=== PATIENT | male | born 1975 | race Caucasian/White ===

== ENCOUNTER 2016-12-21 05:25 | Emergency (ER) | payer OTHER ==
[~2016-12-21] VITALS: Ht 165.1 cm; Wt 94.8 kg
[~2016-12-21 05:25] MED LIST: ATORVASTATIN CA20 MG PO; CITALOPRAM HBR20 MG PO; DICLOFENAC SOD100 MG PO; NORCO 7.5-3251 EACH PO; PERCOCET 7.5-31 EACH PO; PRILOSEC20 MG PO; PROVENTIL HFA6.7 GM INH; PROZAC20 MG PO; TESSALON PERLE100 MG PO; ZOLOFT50 MG PO
[2016-12-21] MEDS ORDERED: OXYCODONE HCL5 MG PO (05:52)
[2016-12-21] MEDS ORDERED: OMEPRAZOLE20 MG PO (05:52)
[2016-12-21] MEDS ORDERED: ATORVASTATIN CA20 MG PO (05:53)
[2016-12-21] MEDS ORDERED: TRAZODONE HCL50 MG PO (05:53)
[2016-12-21] MEDS ORDERED: CYCLOBENZAPRINE10 MG PO (05:53)
[2016-12-21] MEDS ORDERED: CELEXA20 MG PO (05:54)
[2016-12-21] MEDS ORDERED: CELEXA40 MG PO (05:54)
[2016-12-21] MEDS ORDERED: ONDANSETRON ODT8 MG PO (08:06)
== END 2016-12-21 08:15 | disposition home or self-care (01) ==
LOC: ED 05:25
DX: R55 Syncope and collapse (principal); F32.9 Major depressive disorder, single episode, unspecified; K21.9 Gastro-esophageal reflux disease without esophagitis; F17.200 Nicotine dependence, unspecified, uncomplicated; Z90.49 Acquired absence of other specified parts of digestive tract; Z79.899 Other long term (current) drug therapy
CPT/HCPCS: 36415; 71020; 74177; 80053; 81001; 83690; 85025; 87088; 96360; 99284; J7030; Q9967

== ENCOUNTER 2018-06-10 23:42 | Emergency (ER) | payer OTHER ==
[~2018-06-10] VITALS: Ht 165.1 cm; Wt 94.8 kg
[~2018-06-10 23:42] MED LIST changes: +CELEXA20 MG PO; +CELEXA40 MG PO; +CYCLOBENZAPRINE10 MG PO; +OMEPRAZOLE20 MG PO; +ONDANSETRON ODT8 MG PO; +OXYCODONE HCL5 MG PO; +TRAZODONE HCL50 MG PO
== END 2018-06-11 00:34 | disposition home or self-care (01) ==
LOC: ED 23:42
DX: G89.18 Other acute postprocedural pain (principal); M25.521 Pain in right elbow; F32.9 Major depressive disorder, single episode, unspecified; F17.200 Nicotine dependence, unspecified, uncomplicated
CPT/HCPCS: 71046; 73060; 99283-25

== ENCOUNTER 2020-02-27 16:12 | Emergency (ER) | payer SELFPAY ==
[~2020-02-27] VITALS: Ht 165.1 cm; Wt 70.3 kg
[~2020-02-27 16:12] MED LIST changes: +NORCO 5-325 TA1 EACH PO
[2020-02-27] MEDS ORDERED: NORCO 5-325 TA1 EACH PO (18:36)
== END 2020-02-27 18:57 | disposition home or self-care (01) ==
LOC: ED 16:12
DX: N13.2 Hydronephrosis with renal and ureteral calculous obstruction (principal); F17.200 Nicotine dependence, unspecified, uncomplicated
CPT/HCPCS: 74176; 80053; 85025; 96374; 96375; 99284-25; J1885; J2405

== ENCOUNTER 2020-05-30 20:31 | Emergency (ER) | payer OTHER ==
[~2020-05-30] VITALS: Ht 165.1 cm; Wt 86.2 kg
[2020-05-30] MEDS ORDERED: CEPHALEXIN500 M1 PO (21:51)
[2020-05-30] MEDS ORDERED: BACTRIM DS TAB1 EACH PO (21:51)
== END 2020-05-30 22:08 | disposition home or self-care (01) ==
LOC: ED 20:31
DX: L03.113 Cellulitis of right upper limb (principal); K21.9 Gastro-esophageal reflux disease without esophagitis; F17.200 Nicotine dependence, unspecified, uncomplicated
CPT/HCPCS: 99283; A9270

== ENCOUNTER 2020-07-18 11:23 | Emergency (ER) | payer OTHER ==
[~2020-07-18] VITALS: Ht 165.1 cm; Wt 90.7 kg
[~2020-07-18 11:23] MED LIST changes: +BACTRIM DS TAB1 EACH PO; +CEPHALEXIN500 M1 PO
[2020-07-18] MEDS ORDERED: PREDNISONE20 MG PO ×2 (13:25→13:31)
== END 2020-07-18 13:52 | disposition home or self-care (01) ==
LOC: ED 11:23
DX: M54.12 Radiculopathy, cervical region (principal); K21.9 Gastro-esophageal reflux disease without esophagitis; F17.200 Nicotine dependence, unspecified, uncomplicated
CPT/HCPCS: 96372; 99283; J1885; J7512

== ENCOUNTER 2022-04-21 20:42 | Emergency (ER) | payer OTHER ==
[~2022-04-21] VITALS: Ht 165.1 cm; Wt 117.9 kg
[~2022-04-21 20:42] MED LIST changes: +ARIPIPRAZOLE15 MG; +MIRTAZAPINE30 MG; +PREDNISONE20 MG PO; +PRILOSEC OTC20 MG
--- OUTSIDE RECORDS SUMMARY | 2022-04-21 20:46 | XMS ---
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 [place] VISIT COUNT (12 MO.) 2 [facility]. TOTAL 2 NOTE: Visits indicate total known visits. ED/UCC VISIT TRACKING (12 MO.) 04/21/2022 20:42 [facility] TYPE: Emergency COMPLAINT: - SEIZURE 03/29/2022 19:58 [facility] TYPE: Emergency COMPLAINT: - SYNCOPE DIAGNOSES: - Other chcf (current) drug therapy - Syncope and collapse - Gastro-esophageal reflux disease without esophagitis - Nicotine dependence, unspecified, uncomplicated - Allergy status to other drugs, medicaments and biological substances INPATIENT VISIT TRACKING (12 MO.) No inpatient visits to display in this time frame [email or web address]
--- NOTE | 2022-04-22 07:22 | EKG ---
[facility] [address] [facility] [place], [place] [address] Signed Normal sinus rhythm Normal ECG No previous ECGs available Confirmed by ALDO BANEGAS MD ([id number]) on 04/22/2022 7:22:03 AM Electronically Signed By: ALDO BANEGAS MD 04/22/22721 PATIENT NAME: KIKI LOBO Electrocardiogram DATE OF : 79 PHYSICIAN: ALDO BANEGAS MD REPORT #: [id number] REPORT IS CONFIDENTIAL AND NOT TO BE RELEASED WITHOUT AUTHORIZATION
== END 2022-04-21 22:55 | disposition home or self-care (01) ==
LOC: ED 20:42
DX: I95.1 Orthostatic hypotension (principal); K21.9 Gastro-esophageal reflux disease without esophagitis; F17.200 Nicotine dependence, unspecified, uncomplicated; Z88.8 Allergy status to other drugs, medicaments and biological substances; Z79.899 Other long term (current) drug therapy
CPT/HCPCS: 36415; 70450; 80053; 81001; 85025; 93005; 93010; 99284-25

== ENCOUNTER 2023-01-23 13:33 | Emergency (ER) | payer OTHER ==
[~2023-01-23] VITALS: Ht 165.1 cm; Wt 99.6 kg
[2023-01-23] MEDS ORDERED: HYDROCHLOROTH12.5 MG PO (16:23)
[2023-01-23 16:24] VITALS: BP 122/90
[2023-01-23] MEDS ORDERED: LAMOTRIGINE100 MG PO (16:24)
[2023-01-23] MEDS ORDERED: TRAZODONE HCL150 MG PO (16:24)
[2023-01-23] MEDS ORDERED: CYCLOBENZAPRINE10 MG PO (17:05)
[2023-01-23] MEDS ORDERED: PREDNISONE20 MG PO (17:05)
--- NOTE | 2023-01-24 05:54 | EKG ---
[facility] [address] [facility] [place], [place] [address] Signed Normal sinus rhythm Normal ECG When compared with ECG of 21-APR-2022 20:57, No significant change was found Confirmed by JERI RENEE MD ([id number]) on 01/24/2023 5:54:20 AM Electronically Signed By: JERI RENEE 01/24/23 0554 PATIENT NAME: LOBOKIKIKATELYN JANE Electrocardiogram DATE OF : 79 PHYSICIAN: JERI RENEE REPORT #: [id number] REPORT IS CONFIDENTIAL AND NOT TO BE RELEASED WITHOUT AUTHORIZATION
== END 2023-01-23 17:14 | disposition home or self-care (01) ==
LOC: ED 13:33
DX: M54.6 Pain in thoracic spine (principal); M62.830 Muscle spasm of back; F17.200 Nicotine dependence, unspecified, uncomplicated; Z88.8 Allergy status to other drugs, medicaments and biological substances; Z79.899 Other long term (current) drug therapy
CPT/HCPCS: 93005; 93010; 99406

== ENCOUNTER 2023-04-11 19:10 | Emergency (ER) | payer OTHER ==
[~2023-04-11] VITALS: Ht 165.1 cm; Wt 98.3 kg
[~2023-04-11 19:10] MED LIST changes: +HYDROCHLOROTH12.5 MG PO; +LAMOTRIGINE100 MG PO; +TRAZODONE HCL150 MG PO
[2023-04-11 19:33] LABS: BASOPHILS 1.1 % (0-2); EOSINOPHILS 1.5 % (0-6); HEMATOCRIT 47.1 % (35.0-50.0); MCH 28.5 (27-36); MCV 83.9 fl (81-99); MONOCYTES 9.4 % (0-12); PLATELET COUNT 250 K/uL (140-440); RBC 5.62 M/ul (4.3-5.7); RDW 13.7 (10.5-15.0)
[2023-04-11 19:49] LABS: ALBUMIN 3.5 g/dL (3.4-5.0); ANION GAP 12.9 (7-21); BILIRUBIN, TOTAL 0.3 ng/dL (0.2-1.0); BUN/CREATININE RATIO 6.76 (6.0-28.6); CALCIUM 9.2 mg/dL (8.5-10.1); CREATININE, SERUM 1.33 mg/dL (0.70-1.30); POTASSIUM 3.9 mmol/L (3.5-5.1)
[2023-04-11] MEDS ORDERED: BUSPIRONE HCL5 MG PO (20:06)
[2023-04-11] MEDS ORDERED: ALBUTEROL/IPRATROPIUM 3 ML NEB INH ONE (21:00)
[2023-04-11 21:49] LABS: INFLUENZA B NAA NEGATIVE (NEGATIVE); RESPIRATORY SYNCYTIAL VIR NAA NEGATIVE (NEGATIVE)
[2023-04-11] MEDS ORDERED: VENTOLIN HFA18 GM INH (21:59)
--- NOTE | 2023-04-12 22:24 | EKG ---
[facility] [address] [place] [address] Signed Normal sinus rhythm Normal ECG When compared with ECG of 23-JAN-2023 16:33, No significant change was found Confirmed by Nate Mckinnon MD () on 04/12/2023 10:23:52 PM Electronically Signed By: NATE MCKINNON MD 04/12/232223 PATIENT NAME: LOBOKIKI Electrocardiogram DATE OF : 79 PHYSICIAN: NATE MCKINNON MD REPORT #: [id number] REPORT IS CONFIDENTIAL AND NOT TO BE RELEASED WITHOUT AUTHORIZATION
== END 2023-04-11 22:10 | disposition home or self-care (01) ==
LOC: ED 19:10
PROVIDERS: Internal Medicine
DX: J20.8 Acute bronchitis due to other specified organisms (principal); G56.02 Carpal tunnel syndrome, left upper limb; F17.200 Nicotine dependence, unspecified, uncomplicated; Z88.8 Allergy status to other drugs, medicaments and biological substances; Z79.899 Other long term (current) drug therapy
CPT/HCPCS: 36415; 71045; 80053; 83735; 84484; 85025; 87502; 93005; 93010; 94640; U0002

== ENCOUNTER 2023-10-11 15:39 | Emergency (ER) | payer OTHER ==
[~2023-10-11] VITALS: Ht 165.1 cm; Wt 105.7 kg
[2023-10-11] MEDS ORDERED: CYCLOBENZAPRINE HCL 10 MG TAB PO ONE (17:30)
[2023-10-11] MEDS ORDERED: ACETAMINOPHEN 500 MG TAB PO ONE (17:30)
[2023-10-11] MEDS ORDERED: IBUPROFEN 600 MG TAB PO ONE (17:30)
[2023-10-11] MEDS ORDERED: predniSONE 20 MG TAB PO ONE (17:30)
[2023-10-11 17:40] VITALS: BP 158/84
== END 2023-10-11 17:42 | disposition home or self-care (01) ==
LOC: ED 15:39
DX: M54.50 Low back pain, unspecified (principal); F17.200 Nicotine dependence, unspecified, uncomplicated; Z88.8 Allergy status to other drugs, medicaments and biological substances; Z79.899 Other long term (current) drug therapy
CPT/HCPCS: 99283; A9270; J7512

== ENCOUNTER 2024-10-27 20:01 | Emergency (ER) | payer OTHER ==
[~2024-10-27] VITALS: Ht 165.1 cm; Wt 115.8 kg
[~2024-10-27 20:01] MED LIST changes: +AMOX TR-K CLV1 EAC1 PO; +BUSPIRONE HCL5 MG PO; +DOXYCYCLINE HY100 MG PO; +METFORMIN HCL500 MG PO; +METHYLPREDNISOLO4 M1 PO; +MOMETASONE FURO15 GM TOP; -PRILOSEC OTC20 MG; +PRILOSEC OTC20 MG PO; +TRAZODONE HCL100 MG PO; +VENLAFAXINE HCL75 M2 PO; +VENTOLIN HFA18 GM INH
--- OUTSIDE RECORDS SUMMARY | 2024-10-27 20:08 | XMS ---
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 [place] VISIT COUNT (12 MO.) [address] [facility] TOTAL 3 NOTE: Visits indicate total known visits. ED/UCC VISIT TRACKING (12 MO.) 10/27/2024 20:02 [facility] TYPE: Emergency COMPLAINT: - MOUTH BLISTERS/FACIAL SWELLING 10/12/2024 11:26 [facility] TYPE: Emergency COMPLAINT: - RT SIDE FACIAL SWELLING 07/30/2024 16:46 [facility] TYPE: Emergency COMPLAINT: - HAND SWELLING, HEADACHE DIAGNOSES: - Acute bronchitis due to other specified organisms - Allergy status to other drugs, medicaments and biological substances - Essential (primary) hypertension - Gastro-esophageal reflux disease without esophagitis - Hyperlipidemia, unspecified - Nicotine dependence, unspecified, uncomplicated - Other fatigue - 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 INPATIENT VISIT TRACKING (12 MO.) 10/12/2024 14:05 [facility] TYPE: Medical Surgical COMPLAINT: - FACIAL CELLULITIS DIAGNOSES: - Acquired absence of other specified parts of digestive tract - Acquired absence of other specified parts of digestive tract - Alcohol use, unspecified, uncomplicated - Alcohol use, unspecified, uncomplicated - Allergy status to other drugs, medicaments and biological substances - Allergy status to other drugs, medicaments and biological substances - Angioneurotic edema, initial encounter - Angioneurotic edema, initial encounter - Body mass index [BMI] 40.0-44.9, adult - Body mass index [BMI] 40.0-44.9, adult - Cannabis use, unspecified, uncomplicated - Cannabis use, unspecified, uncomplicated - Cellulitis of face - Cellulitis of face - Depression, unspecified - Depression, unspecified - Dorsalgia, unspecified - Dorsalgia, unspecified - Essential (primary) hypertension - Essential (primary) hypertension - Gastro-esophageal reflux disease without esophagitis - Gastro-esophageal reflux disease without esophagitis - Hyperlipidemia, unspecified - Hyperlipidemia, unspecified - Insomnia, unspecified - Insomnia, unspecified - Localized swelling, mass and lump, head - Nicotine dependence, cigarettes, uncomplicated - Nicotine dependence, cigarettes, uncomplicated - Obesity, unspecified - Obesity, unspecified - Other chronic pain - Other chronic pain - 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
[2024-10-27] MEDS ORDERED: DEXAMETHASONE SOD PHOS 10 MG/ML VIAL IV ONE (20:30)
[2024-10-27 20:38] LABS: BASOPHILS 0.8 % (0.2-1.2); EOSINOPHILS 2.6 % (0.8-7.0); LYMPHOCYTES 33.1 % (21.8-53.1); MCH 22.9 PG (25.7-32.2); MCHC 30.2 g/dL (32.3-36.5); MCV 75.8 fL (79.0-92.2); MONOCYTES 6.4 % (5.3-12.2); NEUTROPHILS 56.8 % (34.0-67.9); RBC 4.80 M/uL (4.63-6.08)
[2024-10-27 20:54] LABS: ALT (SGPT) 18.0 U/L (14-59); AST (SGOT) 20.0 U/L (15-37); GLOMERULAR FILTRATION RATE,EST 77.0 mL/min (>60); PROTEIN, TOTAL 6.5 g/dL (6.4-8.2); UREA NITROGEN 8.0 mg/dL (7-18)
[2024-10-27] MEDS ORDERED: MORPHINE SULFATE 4 MG/ML VIAL IV ONE (21:45)
[2024-10-27] MEDS ORDERED: PERIDEX473 M1 PO (22:07)
[2024-10-27] MEDS ORDERED: NASAL DECONGEST30 MG PO (22:12)
[2024-10-27] MEDS ORDERED: HYDROCODON-ACE1 EA10 PO (22:12)
[2024-10-27] MEDS ORDERED: LIDOCAINE HCL100 ML PO (22:12)
[2024-10-27] MEDS ORDERED: LIDOCAINE 2% (VISCOUS) HCL 15 ML UDC MT ONE (22:15)
[2024-10-27] MEDS ORDERED: PSEUDOEPHEDRINE HCL 30 MG TAB PO ONE (22:15)
[2024-10-27] MEDS ORDERED: HYDROCODONE BIT/ACETAMINOPHEN 5/325 MG 1 TAB HOME.PACK PO ONE (22:15)
[2024-10-27 22:27] VITALS: BP 164/99
== END 2024-10-27 22:28 | disposition home or self-care (01) ==
LOC: ED 20:01
PROVIDERS: Family Medicine
DX: K13.79 Other lesions of oral mucosa (principal); I10 Essential (primary) hypertension; F17.200 Nicotine dependence, unspecified, uncomplicated; Z88.8 Allergy status to other drugs, medicaments and biological substances; Z79.84 Long term (current) use of oral hypoglycemic drugs; Z79.899 Other long term (current) drug therapy
CPT/HCPCS: 36415; 70360; 71045; 80053; 83605; 83735; 85025; 96374; 96375; 99283-25; A9270; J1100; J2270

== ENCOUNTER 2024-11-27 16:58 | Emergency (ER) | payer OTHER ==
[~2024-11-27] VITALS: Ht 165.1 cm; Wt 117.0 kg
[~2024-11-27 16:58] MED LIST changes: +HYDROCODON-ACE1 EA10 PO; +LIDOCAINE HCL100 ML PO; +NASAL DECONGEST30 MG PO; +PERIDEX473 M1 PO
[2024-11-27] MEDS ORDERED: SODIUM CHLORIDE 0.9% 1,000 ML IV ONE (17:30)
[2024-11-27 17:49] LABS: BASOPHILS 0.7 % (0.2-1.2); EOSINOPHILS 2.3 % (0.8-7.0); LYMPHOCYTES 25.4 % (21.8-53.1); MCH 22.3 PG (25.7-32.2); MCHC 29.6 g/dL (32.3-36.5); MCV 75.3 fL (79.0-92.2); MONOCYTES 7.0 % (5.3-12.2); NEUTROPHILS 64.2 % (34.0-67.9); RBC 5.15 M/uL (4.63-6.08)
[2024-11-27 17:59] LABS: BLOOD/HGB, URINE NEGATIVE (Negative); KETONE, URINE TRACE (Negative); LEUK ESTERASE, URINE NEGATIVE (negative); NITRITE, URINE NEGATIVE (negative)
[2024-11-27 18:02] LABS: INR 0.99 (0.80-1.30); PROTIME 12.7 Sec (11.2-14.2)
[2024-11-27 18:05] LABS: BACTERIA, URINE NONE SEEN /hpf (negative); CASTS, URINE HYALINE 2+ \\lpf; CRYSTALS, URINE NONE SEEN (0-1+); EPITHELIAL CELLS, URINE NONE SEEN /lpf (0-1+); REFLEX CULTURE, URINE No (No)
[2024-11-27 18:07] LABS: ALT (SGPT) 26.0 U/L (14-59); AST (SGOT) 15.0 U/L (15-37); GLOMERULAR FILTRATION RATE,EST 68.0 mL/min (>60); PROTEIN, TOTAL 7.2 g/dL (6.4-8.2); UREA NITROGEN 9.0 mg/dL (7-18)
[2024-11-27 18:12] LABS: LACTIC ACID, BLOOD 1.9 mmol/L (0.4-2.0)
[2024-11-27 18:15] LABS: AMPHETAMINES, URINE POSITIVE (NEGATIVE); BARBITURATES, URINE NEGATIVE (NEGATIVE); BENZODIAZEPINE, URINE NEGATIVE (NEGATIVE); CANNABINOID, URINE POSITIVE (NEGATIVE); COCAINE, URINE NEGATIVE (NEGATIVE); ECSTASY, URINE POSITIVE (NEGATIVE); FENTANYL, URINE NEGATIVE (NEGATIVE); METHADONE, URINE NEGATIVE (NEGATIVE); OPIATES, URINE NEGATIVE (NEGATIVE); OXYCODONE, URINE NEGATIVE (NEGATIVE); PHENCYCLIDINE, URINE NEGATIVE (NEGATIVE)
[2024-11-27 20:12] VITALS: BP 143/82
--- NOTE | 2024-11-29 11:46 | EKG ---
[facility] [address] [place], [place] [address] Signed Sinus tachycardia Otherwise normal ECG When compared with ECG of 12-OCT-2024 11:57, No significant change was found Confirmed by MARY COLUNGA MD ([id number]) on 11/29/2024 11:46:39 AM Electronically Signed By: MARY COLUNGA 11/29/24 1146 PATIENT NAME: YAMILKIKI JANE Electrocardiogram DATE OF : 79 PHYSICIAN: MARY COLUNGA REPORT #: [id number] REPORT IS CONFIDENTIAL AND NOT TO BE RELEASED WITHOUT AUTHORIZATION
== END 2024-11-27 19:49 | disposition home or self-care (01) ==
LOC: ED 16:58
PROVIDERS: Emergency Medicine
DX: R56.9 Unspecified convulsions (principal); F12.10 Cannabis abuse, uncomplicated; F15.10 Other stimulant abuse, uncomplicated; E11.9 Type 2 diabetes mellitus without complications; I10 Essential (primary) hypertension; K21.9 Gastro-esophageal reflux disease without esophagitis; E78.5 Hyperlipidemia, unspecified; F17.200 Nicotine dependence, unspecified, uncomplicated; Z79.84 Long term (current) use of oral hypoglycemic drugs; Z79.899 Other long term (current) drug therapy
CPT/HCPCS: 36415; 71045; 80053; 80307; 81001; 83605; 85025; 85610; 85730; 87040; 93005; 93010; 96374; 99285-25; J0696; J7030